=== PATIENT | female | born 2000 | race Caucasian/White ===

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

== ENCOUNTER 2020-03-18 08:05 | Outpatient (CLI) | payer MEDICAID ==
[2020-03-18 09:54] LABS: BASOPHILS # (AUTO) 0.03 x10^3/uL (0-0.3); BASOPHILS % (AUTO) 1 % (0-1); EOSINOPHILS # (AUTO) 0.31 x10^3/uL (0-0.8); EOSINOPHILS % (AUTO) 6 % (1-7); LYMPHOCYTES # (AUTO) 1.28 x10^3/uL (1-6.1); LYMPHOCYTES % (AUTO) 23 % (22-44); MD NO; MEAN CORPUSCULAR HEMOGLOBIN 30.2 pg (27.0-34.8); MEAN CORPUSCULAR HGB CONC 32.7 g/dL (32.4-35.8); MEAN CORPUSCULAR VOLUME 92.4 fL (80-100); MEAN PLATELET VOLUME 8.8 fL (7.4-10.4); MONOCYTES # (AUTO) 0.35 x10^3/uL (0-1.4); MONOCYTES % (AUTO) 6 % (2-9); NEUTROPHILS # (AUTO) 3.65 x10^3/uL (1.8-8.0); NEUTROPHILS % (AUTO) 65 % (42-75); PLATELET COUNT 307 x10^3/uL (130-400); RED CELL DISTRIBUTION WIDTH 13.1 % (9.6-15.2)
== END 2020-03-18 23:59 | disposition home or self-care (01) ==
LOC: STAR 08:05
PROVIDERS: ATTEND Obstetrics & Gynecology
DX: Z01.818 Encounter for other preprocedural examination (principal); Z11.59 Encounter for screening for other viral diseases
CPT/HCPCS: 36415; 84703; 85025; 87635

== ENCOUNTER → 2020-05-31 | Outpatient (CLI) | payer MEDICAID ==
[2020-05-31 15:21] LABS: BASOPHILS % (AUTO) 1 % (0-1); EOSINOPHILS % (AUTO) 1 % (1-7); LYMPHOCYTES % (AUTO) 15 % (22-44); MEAN CORPUSCULAR HEMOGLOBIN 29.8 pg (27.0-34.8); MEAN CORPUSCULAR HGB CONC 32.8 g/dL (32.4-35.8); MEAN PLATELET VOLUME 8.6 fL (7.4-10.4); MONOCYTES % (AUTO) 5 % (2-9); NEUTROPHILS % (AUTO) 78 % (42-75); PLATELET COUNT 302 x10^3/uL (130-400); RED BLOOD COUNT 4.81 x10^6/uL (3.82-5.3)
[2020-05-31 15:23] LABS: MD NO
== END | disposition home or self-care (01) ==
LOC: STAR 14:16
PROVIDERS: ATTEND Obstetrics & Gynecology
DX: Z01.818 Encounter for other preprocedural examination (principal); N93.9 Abnormal uterine and vaginal bleeding, unspecified; N80.9 Endometriosis, unspecified; N94.6 Dysmenorrhea, unspecified
CPT/HCPCS: 36415; 84703; 85025

== ENCOUNTER → 2020-06-03 | Outpatient (CLI) | payer MEDICAID | END | disposition home or self-care (01) | LOC: STAR 12:54 | PROVIDERS: ATTEND Anesthesiology | DX: Z01.812 Encounter for preprocedural laboratory examination (principal); Z20.828 Contact with and (suspected) exposure to other viral communicable diseases | CPT/HCPCS: 36415; 87635 ==

== ENCOUNTER 2020-06-08 12:32 | Day surgery (SDC) | payer MEDICAID ==
[~2020-06-08] VITALS: Ht 154.9 cm; Wt 51.6 kg
[2020-06-08] MEDS ORDERED: LACTATED RINGERS 1,000 ML IV SCH (13:00)
[2020-06-08] MEDS ORDERED: ALBU8.5H8 INH (13:00)
[2020-06-08] MEDS ORDERED: NORE5TAB2 PO (13:00)
[2020-06-08] MEDS ORDERED: CHLORHEXIDINE 15 ML UDC MM ONE (13:00)
[2020-06-08 13:24] LABS: HCG UR SG 1.018 (1.003-1.030)
[2020-06-08] MEDS ORDERED: FENTANYL PF 250 MCG/5ML ONE (15:46)
[2020-06-08] MEDS ORDERED: MIDAZOLAM 1 MG/ML, 2ML ONE (15:46)
[2020-06-08] MEDS ORDERED: SILVER NITRATE STICK TP ONE (16:23)
[2020-06-08] MEDS ORDERED: METHYLERGONOVINE 0.2 MG/ML IM ONE (16:24)
[2020-06-08] MEDS ORDERED: PROPOFOL 10 MG/ML, 20ML ONE (16:59)
[2020-06-08] MEDS ORDERED: KETOROLAC 30 MG/1 ML ONE (16:59)
[2020-06-08] MEDS ORDERED: DEXAMETHASONE 4 MG/ML, 1ML ONE (16:59)
[2020-06-08] MEDS ORDERED: CEFAZOLIN 1,000 MG ONE (16:59)
[2020-06-08] MEDS ORDERED: HYDROcodone/APAP 7.5-325MG/15ML UDC PO PRN (17:00)
[2020-06-08] MEDS ORDERED: KETOROLAC 30 MG/1 ML IVPush PRN (17:00)
[2020-06-08] MEDS ORDERED: EPINEPHRINE 1 MG/ML, 1ML ONE (17:53)
[2020-06-08] MEDS ORDERED: BUPIVACAINE/PF 0.25% ONE (17:53)
[2020-06-08] MEDS ORDERED: FENTANYL PF 100 MCG/2ML ONE ×2 (18:06→19:55)
[2020-06-08] MEDS ORDERED: OXYcodone 5 MG/5 ML ORAL.SOL UDC ONE ×2 (18:06→18:42)
[2020-06-08] MEDS: OXYcodone 5 MG/5 ML ORAL.SOL UDC PO PRN ×2 (18:09→18:42)
[2020-06-08] MEDS: FENTANYL PF 100 MCG/2ML IV PRN ×4 (18:12→19:45)
[2020-06-08] MEDS ORDERED: HYDROmorphone 1 MG/ML, 1ML INJ ONE (18:23)
[2020-06-08] MEDS: HYDROmorphone 1 MG/ML, 1ML INJ IVPush PRN ×2 (18:24→19:27)
[2020-06-08] MEDS ORDERED: PROMETHAZINE 25 MG/ML, 1ML ONE ×2 (18:27→19:17)
[2020-06-08] MEDS: PROMETHAZINE 25 MG/ML, 1ML IVPush PRN ×2 (18:36→19:19)
[2020-06-08] MEDS ORDERED: DIAZEPAM 5 MG/ML, 2ML ONE (18:48)
[2020-06-08] MEDS ORDERED: DIAZEPAM 5 MG/ML, 10ML VIAL IV PRN (19:00)
[2020-06-08 21:00] VITALS: BP 121/79
[2020-06-08] MEDS ORDERED: ONDANSETRON 2MG/ML, 2ML IVPush PRN (21:30)
[2020-06-08] MEDS ORDERED: IBUPROFEN 600 MG TABLET PO SCH (21:30)
[2020-06-08] MEDS ORDERED: OXYcodone/APAP 5/325MG TABLET PO PRN (21:30)
[2020-06-08] MEDS ORDERED: OXYC-302 PO ×2 (21:38→21:39)
[2020-06-08] MEDS ORDERED: morphine SULFATE 10 MG/ML, 1ML IV PRN (22:00)
== END 2020-06-08 23:24 | disposition home or self-care (01) ==
LOC: OUT 12:32 → 4NE 20:17 → OUT 23:24
PROVIDERS: ATTEND Obstetrics & Gynecology
DX: N93.9 Abnormal uterine and vaginal bleeding, unspecified (principal); F32.9 Major depressive disorder, single episode, unspecified; Z79.899 Other long term (current) drug therapy; Z90.79 Acquired absence of other genital organ(s); Z90.89 Acquired absence of other organs; Z91.041 Radiographic dye allergy status
CPT/HCPCS: 58563; 81025; J0171; J0690; J1100; J1170; J1885; J2210; J2250; J2405; J2550; J2704; J3010; J3360; J7120; G0378